=== PATIENT | male | born 1960 | race Caucasian/White ===

== ENCOUNTER → 2018-08-26 | Outpatient (CLI) | payer MEDICARE, MEDICAID ==
[~2018-08-26] MED LIST: ATOR40TA70 PO; DILT180T11 PO; DOCU-150 PO; FISH1CAP2 PO; FLUT16SP15 INH; FURO-151 PO; GABA-290 PO; LORA10TA7 PO; METO100T16 PO; NITR0.4T49 SL; PANT40TA4 PO; REPA0.5T3 PO; RIVA20TA PO; SOTA80TA PO
== END | disposition home or self-care (01) ==
LOC: MRI 10:20
PROVIDERS: ATTEND Neurological Surgery
DX: M50.222 Other cervical disc displacement at C5-C6 level (principal); M48.02 Spinal stenosis, cervical region
CPT/HCPCS: 72141

== ENCOUNTER 2019-04-12 12:07 | Emergency (ER) | payer MEDICARE, MEDICAID ==
[~2019-04-12] VITALS: Ht 167.6 cm; Wt 80.0 kg
[2019-04-12] MEDS ORDERED: ASPIRIN 81MG TABLET PO ONE (12:30)
[2019-04-12] MEDS ORDERED: NITROGLYCERIN 0.4MG TABLET SL SL PRN (12:30)
[2019-04-12 12:37] LABS: BASOPHILS % 0.8 % (0.0-2.0); EOSINOPHILS % 7.6 % (0.0-5.0); HEMATOCRIT. 44.9 % (42.0-52.0); HEMOGLOBIN. 15.3 g/dL (14.0-18.0); MEAN CORPUSCULAR HEMOGLOBIN 33.3 pg (28.0-32.0); MEAN CORPUSCULAR VOLUME 97.3 fL (80.0-94.0); MEAN PLATELET VOLUME 7.8 fl (7.4-10.4); MONOCYTES % 5.1 % (2.0-8.0); NEUTROPHILS % 77.5 % (40.0-76.0); PLATELET 274 x1000/uL (130-400); RED BLOOD CELL COUNT 4.61 mill/uL (4.7-6.1)
[2019-04-12 12:43] LABS: CHLORIDE 104 mEq/L (98-107)
[2019-04-12 14:32] VITALS: BP 144/71
== END 2019-04-12 14:32 | disposition home or self-care (01) ==
LOC: ER 12:29
DX: R07.9 Chest pain, unspecified (principal); E11.9 Type 2 diabetes mellitus without complications; I10 Essential (primary) hypertension; E78.00 Pure hypercholesterolemia, unspecified; Z79.899 Other long term (current) drug therapy
CPT/HCPCS: 36415; 71045; 83880; 84484; 93005; 99284

== ENCOUNTER 2019-09-10 10:00 | Inpatient (IN) | payer MEDICARE, MEDICAID ==
[~2019-09-10] VITALS: Ht 160 cm; Wt 78.5 kg
[2019-09-10] MEDS ORDERED: LACTATED RINGERS 1,000 ML IV SCH (11:20)
[2019-09-10] MEDS ORDERED: ASPI-1393 PO (12:15)
[2019-09-10] MEDS ORDERED: ACET-2708 PO (12:15)
[2019-09-10] MEDS ORDERED: ALBU90AE IH (12:15)
[2019-09-10] MEDS ORDERED: METF-416 PO (12:15)
[2019-09-10] MEDS ORDERED: DULA0.75 SQ (12:15)
[2019-09-10] MEDS ORDERED: FLUT1AER IH (12:15)
[2019-09-10] MEDS ORDERED: INSU100V36 SQ (12:15)
[2019-09-10] MEDS ORDERED: AMIO100T4 PO (12:15)
[2019-09-10] MEDS ORDERED: HYDROCORTISONE SOD SUCCINATE 100 MG/2 ML VIAL ONE (15:13)
[2019-09-10] MEDS ORDERED: ROCURONIUM BROMIDE 10MG/ML VIAL 5ML IV ONE (16:50)
[2019-09-10] MEDS ORDERED: LABETALOL HCL 5MG/ML VIAL 20ML IV ONE (17:56)
[2019-09-10] MEDS ORDERED: ZOLPIDEM TARTRATE 5MG TABLET PO PRN (18:30)
[2019-09-10] MEDS ORDERED: DIPHENHYDRAMINE INJ IV PRN (18:30)
[2019-09-10] MEDS ORDERED: HYDROCODONE/ACETAMINOPHEN 10/325MG TABLET PO PRN (18:30)
[2019-09-10] MEDS ORDERED: ONDANSETRON HCL 4MG/2ML INJ IV PRN (18:30)
[2019-09-10] MEDS ORDERED: NALOXONE INJ IV PRN (18:30)
[2019-09-10] MEDS ORDERED: MAGNESIUM HYDROXIDE 400MG/5ML 30ML UDC PO PRN (18:30)
[2019-09-10] MEDS ORDERED: ACETAMINOPHEN 325MG TABLET PO PRN (18:30)
[2019-09-10] MEDS ORDERED: HYDROMORPHONE PCA 10MG/50ML IV PRN (18:30)
[2019-09-10] MEDS ORDERED: ONDANSETRON INJ IV PRN (18:45)
[2019-09-10 20:15] VITALS: BP 144/72
[2019-09-10 21:13] VITALS: BP 144/72
[2019-09-10] MEDS ORDERED: DEXTROSE 50% WATER 50ML SYRINGE IV PRN (22:30)
[2019-09-10] MEDS: AMIODARONE HCL 200 MG TABLET PO SCH (23:22)
[2019-09-10] MEDS: DILTIAZEM HCL 90MG TABLET PO SCH (23:30)
[2019-09-11] VITALS: BP 153/77
[2019-09-11] MEDS: CEFAZOLIN 2,000 MG in DEXT 5% WATER 100 ML IV SCH ×2 (00:39→09:47)
[2019-09-11 04:00] VITALS: BP 155/75
[2019-09-11] MEDS: BLOOD SUGAR DIAGNOSTIC STRIP TEST SCH ×4 (06:36→21:00)
[2019-09-11] MEDS: GABAPENTIN 300MG CAPSULE PO SCH ×3 (06:36→22:00)
[2019-09-11 07:21] LABS: BASOPHILS % 0.8 % (0.0-2.0); EOSINOPHILS % 8.5 % (0.0-5.0); HEMOGLOBIN. 13.4 g/dL (14.0-18.0); LYMPHOCYTES % 24.3 % (20.0-50.0); MEAN CORPUSCULAR VOLUME 95.7 fL (80.0-94.0); MEAN PLATELET VOLUME 7.8 fl (7.4-10.4); MONOCYTES % 7.9 % (2.0-8.0); NEUTROPHILS % 58.5 % (40.0-76.0); PLATELET 223 x1000/uL (130-400); RED BLOOD CELL COUNT 4.07 mill/uL (4.7-6.1); RED CELL DISTRIBUTION WIDTH 12.9 % (11.6-14.6)
[2019-09-11 07:50] LABS: CHLORIDE 108 mEq/L (98-107)
[2019-09-11] MEDS: INSULIN LISPRO 100 UNITS/ML SUBCUT SCH ×4 (07:50→22:06)
[2019-09-11 08:00] VITALS: BP 158/75
[2019-09-11] MEDS: AMIODARONE HCL 200 MG TABLET PO SCH ×2 (09:48→18:20)
[2019-09-11] MEDS: DILTIAZEM HCL 90MG TABLET PO SCH ×2 (09:48→22:01)
[2019-09-11] MEDS: ASPIRIN 81MG TABLET PO SCH (09:48)
[2019-09-11] MEDS: DOCUSATE SODIUM 100MG CAPSULE PO SCH ×2 (09:48→18:21)
[2019-09-11 12:00] VITALS: BP 153/73
[2019-09-11 16:00] VITALS: BP 135/72
[2019-09-11] MEDS: METFORMIN HCL 500MG TABLET PO SCH (18:20)
[2019-09-11] MEDS: HYDROCODONE/ACETAMINOPHEN 10/325MG TABLET PO PRN (18:21)
[2019-09-11 20:00] VITALS: BP 133/68
[2019-09-11] MEDS ORDERED: ATORVASTATIN CALCIUM 40MG TABLET PO SCH (21:00)
[2019-09-12] VITALS: BP 135/68
[2019-09-12 04:00] VITALS: BP 142/66
[2019-09-12] MEDS: GABAPENTIN 300MG CAPSULE PO SCH ×2 (05:57→14:00)
[2019-09-12] MEDS: HYDROCODONE/ACETAMINOPHEN 10/325MG TABLET PO PRN (06:08)
[2019-09-12] MEDS: BLOOD SUGAR DIAGNOSTIC STRIP TEST SCH ×2 (06:44→12:33)
[2019-09-12 06:52] LABS: BASOPHILS % 1.2 % (0.0-2.0); EOSINOPHILS % 9.7 % (0.0-5.0); HEMATOCRIT. 40.4 % (42.0-52.0); HEMOGLOBIN. 13.8 g/dL (14.0-18.0); LYMPHOCYTES % 18.5 % (20.0-50.0); MEAN CORPUSCULAR HEMOGLOBIN 32.8 pg (28.0-32.0); MEAN CORPUSCULAR VOLUME 95.8 fL (80.0-94.0); MEAN PLATELET VOLUME 8.2 fl (7.4-10.4); MONOCYTES % 9.4 % (2.0-8.0); NEUTROPHILS % 61.2 % (40.0-76.0); PLATELET 224 x1000/uL (130-400); RED BLOOD CELL COUNT 4.21 mill/uL (4.7-6.1)
[2019-09-12 07:13] LABS: CHLORIDE 106 mEq/L (98-107)
[2019-09-12 08:00] VITALS: BP 153/74
[2019-09-12] MEDS: METFORMIN HCL 500MG TABLET PO SCH (09:16)
[2019-09-12] MEDS: ASPIRIN 81MG TABLET PO SCH (09:17)
[2019-09-12] MEDS: DILTIAZEM HCL 90MG TABLET PO SCH (09:17)
[2019-09-12] MEDS: AMIODARONE HCL 200 MG TABLET PO SCH (09:17)
[2019-09-12] MEDS: DOCUSATE SODIUM 100MG CAPSULE PO SCH (09:17)
[2019-09-12] MEDS: INSULIN LISPRO 100 UNITS/ML SUBCUT SCH ×2 (09:24→12:59)
[2019-09-12 12:00] VITALS: BP 132/67
[2019-09-12 14:18] VITALS: BP 132/67
== END 2019-09-12 15:20 | disposition home or self-care (01) | DRG 502 ==
LOC: OR 10:00 → 6WST 20:15
PROVIDERS: ADMIT Internal Medicine; ATTEND Orthopaedic Surgery
PROC: 0LB14ZZ Excision of Right Shoulder Tendon, Percutaneous Endoscopic Approach (ICD-10-PCS; principal; 2019-09-10)
PROC: 0PB94ZZ Excision of Right Clavicle, Percutaneous Endoscopic Approach (ICD-10-PCS; 2019-09-10)
PROC: 0RNJ4ZZ Release Right Shoulder Joint, Percutaneous Endoscopic Approach (ICD-10-PCS; 2019-09-10)
PROC: 0MB14ZZ Excision of Right Shoulder Bursa and Ligament, Percutaneous Endoscopic Approach (ICD-10-PCS; 2019-09-10)
DX: M75.121 Complete rotator cuff tear or rupture of right shoulder, not specified as traumatic (principal); G89.29 Other chronic pain; I10 Essential (primary) hypertension; J44.9 Chronic obstructive pulmonary disease, unspecified; M75.41 Impingement syndrome of right shoulder; M19.011 Primary osteoarthritis, right shoulder; M94.211 Chondromalacia, right shoulder; M65.811 Other synovitis and tenosynovitis, right shoulder; D64.9 Anemia, unspecified; I49.5 Sick sinus syndrome; E11.42 Type 2 diabetes mellitus with diabetic polyneuropathy; E78.00 Pure hypercholesterolemia, unspecified; E87.8 Other disorders of electrolyte and fluid balance, not elsewhere classified; I25.10 Atherosclerotic heart disease of native coronary artery without angina pectoris; I48.91 Unspecified atrial fibrillation; Z95.5 Presence of coronary angioplasty implant and graft; Z95.0 Presence of cardiac pacemaker; I25.2 Old myocardial infarction; Z87.891 Personal history of nicotine dependence; Z79.899 Other long term (current) drug therapy; Z79.82 Long term (current) use of aspirin; Z82.49 Family history of ischemic heart disease and other diseases of the circulatory system
CPT/HCPCS: 36415; 80048; 82962; 83036; 88304; 88311; 93005; 97110; 97166; 97530; 97535; A4565; J0171; J0330; J0690; J1170; J1720; J1815; J2250; J2274; J2370; J2405; J2704; J2710; J2765; J2795; J3010; J3490; J7060

== ENCOUNTER 2022-09-20 02:01 | Emergency (ER) | payer MEDICARE, MEDICAID ==
[~2022-09-20] VITALS: Ht 165.1 cm; Wt 75.0 kg
[~2022-09-20 02:01] MED LIST changes: +ALBU90AE IH; +AMIO100T4 MT; +AMIO100T4 PO; +ASPI-1497 PO; -DILT180T11 PO; -DOCU-150 PO; -FLUT16SP15 INH; -FURO-151 PO; -GABA-290 PO; +INSU100V36 SQ; -LORA10TA7 PO; +METF-416 PO; +METH-372 MT; -METO100T16 PO; +NEBI10TA2 MT; -NITR0.4T49 SL; -PANT40TA4 PO; -REPA0.5T3 PO; -RIVA20TA PO; -SOTA80TA PO; +nitro
[2022-09-20 02:10] VITALS: BP 151/104
[2022-09-20] MEDS ORDERED: ACETAMINOPHEN 325MG TABLET PO ONE (05:30)
[2022-09-20] MEDS ORDERED: LIDOCAINE 5% PATCH TOP ONE (05:30)
[2022-09-20] MEDS ORDERED: IBUPROFEN 600MG TABLET PO ONE (06:00)
[2022-09-20] MEDS ORDERED: LIDO700A15 TP (09:29)
[2022-09-20] MEDS ORDERED: MED4 MT (09:29)
[2022-09-20] MEDS ORDERED: HYDR-4001 MT ×2 (09:29→09:32)
[2022-09-20] MEDS ORDERED: BACL-141 MT (09:29)
== END 2022-09-20 09:43 | disposition home or self-care (01) ==
LOC: ER 02:01
DX: M54.41 Lumbago with sciatica, right side (principal); M51.26 Other intervertebral disc displacement, lumbar region; E11.9 Type 2 diabetes mellitus without complications; I11.9 Hypertensive heart disease without heart failure
CPT/HCPCS: 72131; 93971; 99284

== ENCOUNTER → 2023-03-11 | Outpatient (CLI) | payer MEDICARE, MEDICAID ==
[~2023-03-11] MED LIST changes: +BACL-141 MT; +HYDR-4001 MT; +LIDO700A15 TP; +MED4 MT
== END | disposition home or self-care (01) ==
LOC: RAD 11:01
PROVIDERS: ATTEND Internal Medicine Clinical Cardiac Electrophysiology
DX: I10 Essential (primary) hypertension (principal); I48.0 Paroxysmal atrial fibrillation; Z95.0 Presence of cardiac pacemaker
CPT/HCPCS: 71045